=== PATIENT | male | born 1985 | race Caucasian/White ===

== ENCOUNTER 2018-04-15 13:18 | Emergency (ER) | payer OTHER, BC ==
[2018-04-15] MEDS: MINERAL OIL 473 ML BTL TOP ×2 (14:34→16:15)
[2018-04-15] MEDS: PERCOCET 5MG/325MG TAB PO (14:35)
[2018-04-15] MEDS ORDERED: POLYSPORIN TOPICAL OINTMENT 15GM As Ordered (17:09)
== END 2018-04-15 17:51 | disposition home or self-care (01) ==
LOC: M ED 13:18
DX: T23.252A Burn of second degree of left palm, initial encounter (principal); T23.251A Burn of second degree of right palm, initial encounter; X19.XXXA Contact with other heat and hot substances, initial encounter; Y92.89 Other specified places as the place of occurrence of the external cause; Y99.0 Civilian activity done for income or pay; Z79.899 Other long term (current) drug therapy
CPT/HCPCS: 16020

== ENCOUNTER → 2018-09-26 | Outpatient (REF) | payer BC ==
[~2018-09-26] MED LIST: ALBU17IN2 INH; LIPI10TA PO; PERC5TAB12 PO
== END ==
LOC: M SFHCLERA 12:00
PROVIDERS: ATTEND Nurse Practitioner Family
DX: J02.9 Acute pharyngitis, unspecified (principal)

== ENCOUNTER → 2019-01-07 | Outpatient (CLI) | payer BC ==
[2019-01-07 13:17] LABS: BASO % 0.5 % (0.0-1.0); EOS # 0.1 10^3/uL (0.0-0.50); EOS % 1.5 % (0.0-3.0); HEMATOCRIT 50.2 % (42.0-52.0); HEMOGLOBIN 17.4 g/dl (13.5-17.5); LYMPH # 1.2 10^3/uL (1.5-4.5); MEAN CORPUSCULAR HEMOGLOBIN 31.3 pg (27.0-33.0); MEAN CORPUSCULAR HGB CONC 34.7 g/dl (32.0-36.5); MEAN CORPUSCULAR VOLUME 90.3 fl (80.0-96.0); MONO # 0.3 10^3/uL (0.0-0.8); MONO % 8.2 % (0.0-5.0); NEUTROPHILS # 2.5 10^3/uL (1.8-7.7); NEUTROPHILS % 59.6 % (36.0-66.0); PLATELET COUNT, AUTOMATED 168 10^3/uL (150-450); RED BLOOD COUNT 5.56 10^6/uL (4.30-6.10); WHITE BLOOD COUNT 4.1 10^3/uL (4.0-10.0)
[2019-01-07 13:26] LABS: HEMOGLOBIN A1c 5.2 %
[2019-01-07 13:32] LABS: ALBUMIN 4.2 GM/DL (3.2-5.2); ALT/SGPT 31 U/L (12-78); BILIRUBIN,TOTAL 0.9 MG/DL (0.2-1.0); BLOOD UREA NITROGEN 31 MG/DL (7-18); CALCIUM LEVEL 8.6 MG/DL (8.5-10.1); CARBON DIOXIDE LEVEL 28 MEQ/L (21-32); CHLORIDE LEVEL 105 MEQ/L (98-107); CHOLESTEROL LEVEL 174 MG/DL (<200); CREATININE FOR GFR 1.22 MG/DL (0.70-1.30); GLOMERULAR FILTRATION RATE > 60.0 (>60); GLUCOSE, FASTING 84 MG/DL (70-100); HDL CHOLESTEROL 50 MG/DL (>40); LDL CHOLESTEROL 103 MG/DL (<100); NON-HDL-C 124 MG/DL; POTASSIUM SERUM 4.7 MEQ/L (3.5-5.1); SODIUM LEVEL 140 MEQ/L (136-145); TOTAL PROTEIN 7.3 GM/DL (6.4-8.2); TRIGLYCERIDES LEVEL 105 MG/DL (<150)
[2019-01-09 12:04] LABS: TOTAL 25(OH) VITAMIN D 31.4 NG/ML (30.0-100.0)
== END ==
LOC: M WUC 08:56
PROVIDERS: ATTEND Nurse Practitioner Adult Health
DX: E78.00 Pure hypercholesterolemia, unspecified (principal); J45.909 Unspecified asthma, uncomplicated; Z79.899 Other long term (current) drug therapy

== ENCOUNTER 2019-07-25 18:15 | Inpatient (IN) | payer BC, OTHER ==
[~2019-07-25] VITALS: Ht 177.8 cm; Wt 110.7 kg
[~2019-07-25 18:15] MED LIST changes: -ALBU17IN2 INH; +PROV108A INH
[2019-07-25] MEDS ORDERED: TAMS1CAP17 (18:22)
[2019-07-25] MEDS ORDERED: ONDA4TAB6 (18:22)
[2019-07-25] MEDS ORDERED: HYDR-3713 (18:22)
[2019-07-25 19:10] LABS: BASO % 0.2 % (0.0-1.0); EOS % 0.1 % (0.0-3.0); HEMATOCRIT 46.1 % (42.0-52.0); HEMOGLOBIN 16.6 g/dl (13.5-17.5); LYMPH # 1.2 10^3/uL (1.5-5.0); LYMPH % 8.2 % (24.0-44.0); MEAN CORPUSCULAR HEMOGLOBIN 29.9 pg (27.0-33.0); MEAN CORPUSCULAR VOLUME 82.9 fl (80.0-96.0); MONO # 1.9 10^3/uL (0.0-0.8); MONO % 13.1 % (0.0-5.0); NEUTROPHILS # 11.5 10^3/uL (1.5-8.5); NEUTROPHILS % 77.7 % (36.0-66.0); PLATELET COUNT, AUTOMATED 164 10^3/uL (150-450); RED BLOOD COUNT 5.56 10^6/uL (4.30-6.10); WHITE BLOOD COUNT 14.8 10^3/uL (4.0-10.0)
[2019-07-25 19:26] LABS: ALBUMIN 4.1 GM/DL (3.2-5.2); ALT/SGPT 20 U/L (12-78); BILIRUBIN,DIRECT 0.6 MG/DL (0.0-0.2); BILIRUBIN,TOTAL 2.3 MG/DL (0.2-1.0); BLOOD UREA NITROGEN 21 MG/DL (7-18); CARBON DIOXIDE LEVEL 25 MEQ/L (21-32); CHLORIDE LEVEL 98 MEQ/L (98-107); CREATININE FOR GFR 2.18 MG/DL (0.70-1.30); GLOMERULAR FILTRATION RATE 37.5 (>60); GLUCOSE, FASTING 98 MG/DL (70-100); LIPASE 56 U/L (73-393); POTASSIUM SERUM 3.8 MEQ/L (3.5-5.1); SODIUM LEVEL 132 MEQ/L (136-145); TOTAL PROTEIN 7.1 GM/DL (6.4-8.2)
[2019-07-25] MEDS ORDERED: ONDANSETRON 4MG/2ML VIAL (J2405) IV ONE (20:45)
[2019-07-25] MEDS: HEPARIN SOD (PORCINE) 5000 UNITS/ML VIAL SC SCH (21:00)
[2019-07-25] MEDS ORDERED: MORPHINE 4 MG/ML 1ML VIAL/SYRINGE (J2270) IV ONE ×2 (21:00→22:15)
[2019-07-25] MEDS ORDERED: NS 1,000 ML IV ONE (21:00)
--- NOTE | 2019-07-25 21:36 | REPVR ---
PROCEDURE INFORMATION: Exam: CT Abdomen and Pelvis Without Contrast Exam date and time: 07/25/19 (8:55pm) Age: 34 years old Clinical indication: Left flank pain. History of stones. TECHNIQUE: Imaging protocol: Computed tomography of the abdomen and pelvis without contrast. Radiation optimization: All CT scans at this facility use at least one of these dose optimization techniques: automated exposure control; mA and/or kV adjustment per patient size (includes targeted exams where dose is matched to clinical indication); or iterative reconstruction. COMPARISON: No relevant prior studies available. FINDINGS: Liver: Normal. No solid mass. Gallbladder and bile ducts: Normal. No calcified stones. No ductal dilatation. Pancreas: Normal. No ductal dilatation. Spleen: Prominent spleen. Normal. No splenomegaly. Adrenals: Normal. No mass. Kidneys and ureters: Moderate left hydroureteronephrosis. Left perinephric and left periureteral fat stranding. Left kidney appears edematous and inflamed. Obstructing stone (3 x 4 mm size) in the distal left ureter (axial image #119) (located 3-4 cm above the left UV junction). Stomach and bowel: Unremarkable. No bowel obstruction. No mucosal thickening. Appendix: No evidence of appendicitis. Intraperitoneal space: Unremarkable. No free air. No significant fluid collection. Vasculature: Unremarkable. No abdominal aortic aneurysm. Lymph nodes: Unremarkable. No enlarged lymph nodes. Bladder: Unremarkable as visualized. Reproductive: Unremarkable as visualized. Bones/joints: Unremarkable. No acute fracture. Soft tissues: Unremarkable. IMPRESSION: Moderate left hydroureteronephrosis. Left perinephric and left periureteral fat stranding. Obstructing stone (3 x 4 mm size) in the distal left ureter (located 3-4 cm above the left UV junction). Electronically signed by: Kelin Call On 07/25/2019 21:35:46 PM
[2019-07-25 21:40] LABS: CK-MB VALUE MASS < 1.0 NG/ML (<3.6); CPK CREATINE PHOSPHOKINASE 115 U/L (39-308); MB/CK RELATIVE INDEX 0.87 (< OR =4); TROPONIN I < 0.02 NG/ML (< 0.10)
[2019-07-25] MEDS ORDERED: cefTRIAXone SOD 1 GM in D5W MINI-BAG PLUS 50 ML IV ONE (22:15)
[2019-07-25] MEDS ORDERED: ONDA4TAB6 PO (23:08)
[2019-07-25] MEDS ORDERED: PROAAER10 INH (23:08)
[2019-07-25] MEDS ORDERED: FLOM0.4C39 PO (23:08)
[2019-07-25] MEDS ORDERED: NORC1TAB7 PO (23:08)
[2019-07-25] MEDS ORDERED: ATOR40TA75 PO (23:08)
[2019-07-25] MEDS ORDERED: ONDANSETRON 4 MG ORAL DISINTEGRATING TAB (Q0162 PER 1MG) PO PRN (23:30)
[2019-07-25] MEDS ORDERED: ACETAMINOPHEN TAB 650MG DOSE (2X325MG) PO PRN (23:30)
[2019-07-25] MEDS ORDERED: cefTRIAXone SOD 1 GM VIAL (J0696) IM SCH (23:30)
[2019-07-25] MEDS: NS 1,000 ML IV SCH (23:45)
[2019-07-25] MEDS: ATORVASTATIN 20 MG TAB PO SCH (23:50)
[2019-07-26] VITALS (7 sets, daily range): BP systolic 132–144; BP diastolic 68–90
[2019-07-26 00:30] LABS: CK-MB VALUE MASS < 1.0 NG/ML (<3.6); CPK CREATINE PHOSPHOKINASE 112 U/L (39-308); MB/CK RELATIVE INDEX 0.89 (< OR =4); TROPONIN I < 0.02 NG/ML (< 0.10)
[2019-07-26] MEDS: NORCO, ANEXSIA 5/325MG TABLET (HYDROcodone/ACETAMINOPHEN) PO PRN ×3 (01:03→12:46)
--- NOTE | 2019-07-26 02:16 | REP ---
Clinical: Lower chest and abdominal pain . Comparison: 04/06/2007 . Technique: PA and lateral. Findings: The mediastinum and cardiac silhouette are normal. The lung sanchez are clear and without acute consolidation, effusion, or pneumothorax. The skeletal structures are intact and normal. Impression: 1. No acute cardiopulmonary process. Electronically Signed by Henri Sharp MD 07/26/2019 02:07 A
[2019-07-26] MEDS: MORPHINE 4 MG/ML 1ML VIAL/SYRINGE (J2270) IV PRN ×2 (05:24→15:13)
--- NOTE | 2019-07-26 05:45 | HPEPDOC ---
General Date of Admission Jul 25, 2019 at 23:18 Date of Service: Jul 25, 2019 Attending Physician: VERITO PORTER MD Chief Complaint The patient is a 34-year-old male admitted with a reason for visit of Froylan; Hydroureteronephrosis;Left Ureteral Calculus. Source: Patient Exam Limitations: No limitations Timing/Duration: Day(s) Severity: Severe Associated Symptoms: Fever, Loss of appetite, Vomiting, Other (L flank and L LQ abdominal pain) History of Present Illness 34 yo man with a history of kidney stones that passed spontaneously, hypertension not on any medications, hyperlipidemia, chronic back pain, mild asthma who presented to [facility] twice in the last 3 days with L flank pain and was found to have a kidney stone and discharged home on Vest and to follow up with PCP. However on his second presentation yesterday, he also now had N/V/fever and [facility] referred him to [facility] for evaluation as they do not have urology. In the ED, vitals were 134/91, T 96.9, HR 100, RR 22 while saturating 98% on room air. He was visibly uncomfortable and writhing in pain. He was given morphine 4mg x 2 with some moderate relief. The ED consulted Dr. Awad who recommended admission to medicine with close monitoring of his urine with plan for OR tomorrow if the stone did not pass. In the meantime, his work up was notable for CT A/P that showed moderate left hdyrouteronephrosis, perinephric and periureteral fat stranding, as well as an obstructing 3x4mm stone in the distal ureter above the UVJ, WBC 14.8, Hgb 16.6, Hct 46.1, platelets 164, Na 132, K 3.8 BUN 21, Cr 2.18 from recent 1.4 at [facility], Tbili of 2.3, Dbili 0.6, normal AST, ALT and Alk phos. He was given empiric ceftriaxone and admitted to medicine for pain control, empiric antibiotics, pending urology evaluation. Home Medications Scheduled Atorvastatin Calcium (Atorvastatin Calcium) 40 Mg Tablet, 40 MG PO QHS, (Reported) Tamsulosin HCl (Flomax) 0.4 Mg Capsule, 0.4 MG PO BID, (Reported) JUST INCREASED FROM ONCE DAILY TODAY Scheduled PRN Albuterol Sulfate (Proair Hfa) 8.5 Gm Hfa.aer.ad, 2 PUFF INH Q4H PRN for SHORTNESS OF BREATH, (Reported) Hydrocodone/Acetaminophen (Vest 5-325 Tablet) 1 Each Tablet, 1 TAB PO Q4H PRN for PAIN, (Reported) Ondansetron (Ondansetron Odt) 4 Mg Tab.rapdis, 4 MG PO Q6H PRN for NAUSEA, (Reported) Allergies Coded Allergies: No Known Allergies (Verified , 08/21/04) Past Medical History Medical History Kidney stones that passed spontaneously, hypertension not on any medications, hyperlipidemia, chronic back pain, mild asthma, morbidly obese Surgical History s/p appendectomy biopsy of cysts that were benign Family History Significant Family History: No pertinent family hx Social History * Smoker: Denies Alcohol: Denies Drugs: denies Recent Travel/Sick Contacts: Denies: Recent travel, Recent sick contacts Psychosocial History: No pertinent psych hx A-FIB/CHADSVASC A-FIB History Current/History of A-Fib/PAF?: No Current PO Anticoag Therapy: No Age/Risk Factor Scoring CHADSVASC: CHADSVASC Response (Comments) Value Age Risk Factor Age < 65 years old 0 Gender Risk Factor Male 0 Hx of CHF No 0 Hx of HTN Yes 1 Hx of Stroke/TIA/or VTE No 0 Hx of Diabetes No 0 Hx of Vascular Disease No 0 Total 1 Treatment Treatment ordered: NONE Reason Anticoagulant not given: Not indicated/[id number] Review of Systems Constitutional: Reports: Chills, Fever; Denies: Night Sweats Eyes: Denies: Pain, Vision change ENT: Denies: Head Aches, Ear Pain, Dysphagia Skin: Denies: Rash, Lesions, Breakdown Pulmonary: Denies: Dyspnea, Cough Cardiovascular: Denies: Chest Pain, Palpitations, Orthopnea, Paroxysmal Noc. Dyspnea, Lt Headedness Gastrointestinal: Reports: Abdominal Pain (LLQ pain in band like motion to L flank); Denies: Nausea, Vomiting, Diarrhea Genitourinary: Reports: Retention (feels like he has had reduced urine output per his baseline); Denies: Dysuria, Frequency, Incontinence, Hematuria (no nted becky hematuria) Hematologic: Denies: Bruising, Bleeding Excessively Endocrine: Denies: Polydipsia, Polyphagia, Polyuria, Heat Intolerance, Cold Intolerance, Other Endocrine Sx Musculoskeletal: Reports: Back Pain (L flank pain) Neurological: Denies: Weakness, Numbness, Change in speech, Confusion Psych: Reports: Mood Normal; Denies: Depression, Memory Issues Physical Examination General Exam: Positive: Alert, No Acute Distress Eye Exam: Positive: PERRLA, Conjunctiva & lids normal, EOMI; Negative: Sclera icteric ENT Exam: Positive: Atraumatic, Mucous membr. moist/pink, Pharynx Normal Neck Exam: Positive: Supple; Negative: JVD, thyromegaly Chest Exam: Positive: Clear to auscultation, Normal air movement Heart Exam: Positive: Rate Normal, Regular Rhythm, Normal S1, Normal S2; Negative: Murmurs, Rubs Telemetry: Positive: No significant arrhythmia Abdomen Exam: Positive: Normal bowel sounds, Soft, Tenderness (LLQ pain and left suprapubic pain, also exquisite L flank pain); Negative: Hepatospenomegaly Extremity Exam: Positive: Normal pulses; Negative: Clubbing, Cyanosis, Edema Skin Exam: Positive: Nl turgor and temperature; Negative: Breakdown, Lesion Neuro Exam: Positive: Normal Gait, Normal Speech, Cranial Nerves 3-12 NL, Reflexes 2+ Psych Exam: Positive: Mental status NL, Mood NL, Oriented x 3 Vital Signs Vital Signs Date Time Temp Pulse Resp B/P (MAP) Pulse Ox O2 Delivery O2 Flow Rate FiO2 07/26/19 01:43 18 07/26/19 00:36 99.0 102 154/64 (94) 96 Room Air Laboratory Data Labs 24H Laboratory Tests 2 07/25/19 18:27: Immature Granulocyte % (Auto) 0.7, Neutrophils (%) (Auto) 77.7H, Lymphocytes (%) (Auto) 8.2L, Monocytes (%) (Auto) 13.1H, Eosinophils (%) (Auto) 0.1, Basophils (%) (Auto) 0.2, Neutrophils # (Auto) 11.5H, Lymphocytes # (Auto) 1.2L, Monocytes # (Auto) 1.9H, Eosinophils # (Auto) 0.0, Basophils # (Auto) 0.0, Nucleated Red Blood Cells % (auto) 0.0, Anion Gap 9, Glomerular Filtration Rate 37.5L, Calcium Level 9.0, Total Bilirubin 2.3H, Direct Bilirubin 0.6H, Aspartate Amino Transf (AST/SGOT) 11, Alanine Aminotransferase (ALT/SGPT) 20, Alkaline Phosphatase 85, Total Creatine Kinase 115, Creatine Kinase MB < 1.0, Creatine Kinase MB Relative Index 0.87, Troponin I < 0.02, Total Protein 7.1, Albumin 4.1, Albumin/Globulin Ratio 1.37, Lipase 56L 07/25/19 18:42: Urine Color YELLOW, Urine Appearance CLEAR, Urine pH 6.0, Urine Specific [place] 1.014, Urine Protein NEGATIVE, Urine Glucose (UA) NEGATIVE, Urine Ketones 1+H, Urine Blood 2+H, Urine Nitrite NEGATIVE, Urine Bilirubin NEGATIVE, Urine Urobilinogen 0.2, Urine Leukocyte Esterase NEGATIVE, Urine WBC (Auto) 1, Urine RBC (Auto) 3, Urine Hyaline Casts (Auto) 0, Urine Bacteria (Auto) NEGATIVE, Urine Squamous Epithelial Cells 0, Urine Sperm (Auto) 07/25/19 23:48: Total Creatine Kinase 112, Creatine Kinase MB < 1.0, Creatine Kinase MB Relative Index 0.89, Troponin I < 0.02 CBC/BMP Laboratory Tests 07/25/19 18:27 Assessment/Plan 34 yo man with a history of remote kidney stones that passed spontaneously, hypertension not on any medications, hyperlipidemia, chronic back pain, mild asthma who presented to [facility] twice in the last 3 days with L flank pain and was found to have a kidney stone now sent to [facility] after developing fever/N/V/D with L hydro, being admitted for an obstructive left ureteral stone with hydronephrosis as well as concern for pyelonephritis 2/2 the stone. Probable pyelonephritis: With leukocytosis, perinephric and periureteral fat stranding, edema and inflammation in the setting of a known obstructive stone -continue empiric ceftriaxone for now -consulted urology, Dr. Awad will evaluate the patient in the AM -bland UA with respect to WBC and bacteria Renal calculus with obstruction and L hydroureteronephrosis: -Urology consulted -Pain management with morphone 4Q4 IV PRN for severe pain, continue outpatient PRN norco for moderate pain -NPO at midnight per Dr. Awad, on 100cc/hr NS -Strain urine for stone passage, patient knows to collect all urine output -continue flomax -zofran IV PRN for N/V FROYLAN: Most likely prerenal given poor PO, N/V in the past 3 days. Keeping in mind the obstructive renal stone -monitor for now -urine lytes Hypertension: -has been normotensive thus far, will monitor Asthma: no evidence of exacerbation. Rare use of inhaler -Will monitor for now Constipation: -[place] BID DVT ppx: heparin Dispo: med surg, with urology consult Plan / VTE VTE Prophylaxis Ordered?: Yes VERITO PORTER MD Jul 26, 2019 05:45
--- NOTE | 2019-07-26 06:17 | ECGEPIP ---
[facility] - ED Test Date: 2019-07-25 Pat Name: CHRISTINE ROYAL Department: Room: - Gender: Male [employer]oll Gate Keeper: sherron : 1985 Requested By: TANIA Gill PA-C Order Number: [id number] Reading MD: Herman Simpson Measurements Intervals [place] Rate: 89 P: 46 [place]: 176 QRS: 9 QRSD: 108 T: 14 QT: 345 QTc: 420 Interpretive Statements SINUS RHYTHM NO PRIORS FOR COMPARISON Electronically Signed on 07-26-2019 6:16:56 EST by Herman Simpson
[2019-07-26] MEDS: HEPARIN SOD (PORCINE) 5000 UNITS/ML VIAL SC SCH ×2 (08:02→22:50)
[2019-07-26] MEDS: SENOKOT S TAB PO SCH ×2 (09:00→22:50)
[2019-07-26] MEDS ORDERED: INFLUENZA QUADRIVALENT PF VACCINE 0.5ML SYRINGE (90686) IM ONE (09:00)
--- NOTE | 2019-07-26 09:00 | SMCUROLCON ---
Urology Consultation General Date of Consultation 07/26/19 Reason For Consultation This patient is seen for Froylan; Hydroureteronephrosis;Left Ureteral Calculus. History of Present Illness This is a 34 y/o M w/ a PMH significant for asthma, who presented to the ER yesterday evening w/ worsening left flank pain and n/v. This has been becoming increasingly worse since Wednesday. He has been to [facility] twice for this as well and was given pain medications and antiemetics. On CT A/P done here, he was found to have a 6mm obstructing distal left ureteral stone w/ moderate left hydroureteronephrosis and perinephric stranding. He also had a 3-4mm nonobstructing stone in the left kidney. He notes that his pain is controlled at this time but only b/c of pain medication. He has no appetite. He felt like was running fevers at home, but denies fevers since coming to the hospital. He has never had kidney stones previously. He denies dysuria. Past Medical History Medical History asthma Medications Current Medications Current Medications Medications (Trade) Dose Ordered Sig/Jennifer Route PRN Reason Start Time Stop Time Status Last Admin Dose Admin Acetaminophen (Tylenol Tab) 650 mg Q4H PRN PO PAIN OR FEVER 07/25/19 23:30 Acetaminophen/ Hydrocodone Bitart (Tarpley, Anexsia 5/325) 1 tab Q4H PRN PO PAIN 07/25/19 23:30 07/26/19 05:34 Atorvastatin Calcium (Lipitor) 40 mg QHS PO 07/25/19 21:00 07/25/19 23:50 Ceftriaxone Sodium 1 gm/ Dextrose 50 ml @ 100 mls/hr Q24H IV 07/26/19 09:00 Ceftriaxone Sodium (Rocephin) 1 gm Q24H IM 07/25/19 23:30 07/25/19 23:52 DC Heparin Sodium (Porcine) (Heparin) 5,000 units Q12H SC 07/25/19 21:00 07/25/19 21:00 Home Med (Med Rec Complete!) ASDIRECTED XX 07/25/19 23:15 07/25/19 23:13 DC Morphine Sulfate (Morphine Sulfate Inj) 4 mg Q4H PRN IV SEVERE PAIN (PS 8-10) 07/25/19 23:30 07/26/19 05:24 Ondansetron HCl (Zofran Odt) 4 mg Q6H PRN PO NAUSEA 07/25/19 23:30 Senna/Docusate Sodium (Senokot S) 1 tab BID PO 07/26/19 09:00 Sodium Chloride 1,000 ml @ 100 mls/hr Q10H IV 07/25/19 23:22 07/25/19 23:45 Tamsulosin HCl (Flomax) 0.4 mg BID PO 07/26/19 09:00 Allergies Allergies: Coded Allergies: No Known Allergies (Verified , 08/21/04) Review of Systems General: Denies: Chills, Night Sweats, Fatigue, Malaise Eyes: Denies: Pain, Vision change, Conjunctivae inflammation, Eyelid inflammation, Redness, Other Pulmonary: Denies: Dyspnea, Cough, Pleuritic Chest Pain, Other Symptoms Cardiovascular: Denies Chest Pain, Denies Palpitations, Denies Orthopnea, Denies Paroxysmal Noc. Dyspnea, Denies Edema, Denies Lt Headedness, Denies Other Symptoms Gastrointestinal: Reports: Nausea, Vomiting, Abdominal Pain Genitourinary: Denies: Dysuria, Frequency, Incontinence, Hematuria, Retention, Other Symptoms Musculoskeletal: Reports: Back Pain (left flank pain) Neurological: Denies: Weakness, Numbness, Incoordination, Change in Speech, Confusion, Seizures, Other Symptoms Psych: Reports: Mood Normal Physical Examination General Exam: Alert, Cooperative, No Acute Distress Chest Exam: Clear to auscultation Heart Exam: Rate Normal, Regular Rhythm Skin Exam: Nl turgor and temperature Neuro Exam: Normal Speech Psych Exam: Mental status NL, Mood NL Vital Signs/I&O Vital Signs Date Time Temp Pulse Resp B/P (MAP) Pulse Ox O2 Delivery O2 Flow Rate FiO2 07/26/19 06:10 18 07/26/19 06:00 98.3 77 141/83 (102) 95 Room Air I&O- Last 24 Hours up to 6 AM 07/26/19 05:59 Intake Total 1000 ml Output Total 1100 ml Balance -100 ml Laboratory Data 24H Labs Laboratory Tests 2 07/25/19 18:27: Immature Granulocyte % (Auto) 0.7, Neutrophils (%) (Auto) 77.7H, Lymphocytes (%) (Auto) 8.2L, Monocytes (%) (Auto) 13.1H, Eosinophils (%) (Auto) 0.1, Basophils (%) (Auto) 0.2, Neutrophils # (Auto) 11.5H, Lymphocytes # (Auto) 1.2L, Monocytes # (Auto) 1.9H, Eosinophils # (Auto) 0.0, Basophils # (Auto) 0.0, Nucleated Red Blood Cells % (auto) 0.0, Anion Gap 9, Glomerular Filtration Rate 37.5L, Calcium Level 9.0, Total Bilirubin 2.3H, Direct Bilirubin 0.6H, Aspartate Amino Transf (AST/SGOT) 11, Alanine Aminotransferase (ALT/SGPT) 20, Alkaline Phosphatase 85, Total Creatine Kinase 115, Creatine Kinase MB < 1.0, Creatine Kinase MB Relative Index 0.87, Troponin I < 0.02, Total Protein 7.1, Albumin 4.1, Albumin/Globulin Ratio 1.37, Lipase 56L 07/25/19 18:42: Urine Color YELLOW, Urine Appearance CLEAR, Urine pH 6.0, Urine Specific [place] 1.014, Urine Protein NEGATIVE, Urine Glucose (UA) NEGATIVE, Urine Ketones 1+H, Urine Blood 2+H, Urine Nitrite NEGATIVE, Urine Bilirubin NEGATIVE, Urine Urobilinogen 0.2, Urine Leukocyte Esterase NEGATIVE, Urine WBC (Auto) 1, Urine RBC (Auto) 3, Urine Hyaline Casts (Auto) 0, Urine Bacteria (Auto) NEGATIVE, Urine Squamous Epithelial Cells 0, Urine Sperm (Auto) 07/25/19 23:48: Total Creatine Kinase 112, Creatine Kinase MB < 1.0, Creatine Kinase MB Relative Index 0.89, Troponin I < 0.02 CBC/BMP Laboratory Tests 07/25/19 18:27 Assessment This is a 34 y/o M w/ admitted w/ FROYLAN and intractable pain due to an obstructing 6mm distal left ureteral stone and persistent vomiting. I explained that there is a chance that he could pass this stone. Assuming he does not pass the stone, we will plan to take him to the OR later today for cystoscopy, left ureteroscopy with laser lithotripsy, and left ureteral stent placement. Plan - hydrate - pain control - flomax - strain all urine - NPO - plan OR later today if patient does not pass his stone JAY JAY WATSON MD Jul 26, 2019 09:00
[2019-07-26] MEDS: TAMSULOSIN 0.4 MG CAP PO SCH ×2 (09:19→22:49)
[2019-07-26] MEDS: cefTRIAXone SOD 1 GM in D5W MINI-BAG PLUS 50 ML IV SCH (09:20)
[2019-07-26] MEDS: NS 1,000 ML IV SCH ×2 (09:54→22:54)
--- NOTE | 2019-07-26 11:02 | IPNPDOC ---
Subjective Date Seen The patient was seen on 07/26/19. Subjective Chief Complaint/HPI Patient is still and complaining of pain at the left flank. Awaiting urology procedure this afternoon General: Denies: ROS Unobtainable, Chills, Night Sweats, Fatigue, Malaise, Normal Appetite, Other Symptoms Constitutional: Denies: Chills, Fever, Malaise, Night Sweats, Weakness, Fatigue, Weight Loss, Lethargy, Other Pulmonary: Denies: Dyspnea, Cough, Pleuritic Chest Pain, Other Symptoms Cardiovascular: Denies: Chest Pain, Palpitations, Orthopnea, Paroxysmal Noc. Dyspnea, Edema, Lt Headedness, Other Symptoms Gastrointestinal: Denies: Nausea, Vomiting, Abdominal Pain, Diarrhea, Constipation, Melena, Hematochezia, Other Symptoms Genitourinary: Reports: Other Symptoms Endocrine: Denies: Polydipsia, Polyphagia, Polyuria, Heat Intolerance, Cold Intolerance, Other Endocrine Sx Musculoskeletal: Denies: Neck Pain, Back Pain, Shoulder Pain, Arm Pain, Hand Pain, Leg Pain, Foot Pain, Joint Pain, Muscle Pain, Spasms, Other Symptoms Neurological: Denies: Weakness, Numbness, Incoordination, Change in speech, Confusion, Seizures, Other Symptoms Objective Physical Examination Eye Exam: Negative: Sclera icteric Neck Exam: Positive: Supple; Negative: JVD, thyromegaly Chest Exam: Positive: Clear to auscultation, Normal air movement Heart Exam: Positive: Rate Normal, Regular Rhythm, Normal S1, Normal S2; Negative: Murmurs, Rubs Telemetry: Positive: No significant arrhythmia Abdomen Exam: Positive: Normal bowel sounds, Soft, Tenderness (LLQ pain and left suprapubic pain, also exquisite L flank pain); Negative: Hepatospenomegaly Extremity Exam: Positive: Normal pulses; Negative: Clubbing, Cyanosis, Edema Skin Exam: Positive: Nl turgor and temperature; Negative: Breakdown, Lesion Neuro Exam: Positive: Normal Gait, Normal Speech, Cranial Nerves 3-12 NL, Reflexes 2+ Assessment /Plan Problems (1) BULL (acute kidney injury) Status: Acute Problem Text: Most likely prerenal given poor PO, N/V in the past 3 days. Continue IVF (2) Hydroureteronephrosis Status: Acute Problem Text: Most likely patient has pyelonephritis secondary to leukocytosis, perinephric fat stranding edema and inflammation at the setting of obstructing his stone Continue ceftriaxone as per orders Urine cultures ordered and pending (3) Left ureteral calculus Status: Acute Problem Text: Patient has a renal calculus causing obstruction and hydro ureter hydronephrosis on left side Urology consult appreciated. Patient is a scheduled for cystoscopy with removal of the stone today at 5 PM Will keep patient nothing by mouth, continue IV fluids normal saline at 100 mL per hour Continue Flomax and Zofran when necessary and morphine sulfate for pain Plan/VTE VTE Prophylaxis Ordered?: Yes VS, I&O, 24H, Fishbone Vital Signs/I&O Vital Signs Date Time Temp Pulse Resp B/P (MAP) Pulse Ox O2 Delivery O2 Flow Rate FiO2 07/26/19 06:10 18 07/26/19 06:00 98.3 77 141/83 (102) 95 Room Air I&O- Last 24 Hours up to 6 AM 07/26/19 05:59 Intake Total 1000 ml Output Total 1100 ml Balance -100 ml Laboratory Data 24H LABS Laboratory Tests 2 07/25/19 18:27: Immature Granulocyte % (Auto) 0.7, Neutrophils (%) (Auto) 77.7H, Lymphocytes (%) (Auto) 8.2L, Monocytes (%) (Auto) 13.1H, Eosinophils (%) (Auto) 0.1, Basophils (%) (Auto) 0.2, Neutrophils # (Auto) 11.5H, Lymphocytes # (Auto) 1.2L, Monocytes # (Auto) 1.9H, Eosinophils # (Auto) 0.0, Basophils # (Auto) 0.0, Nucleated Red Blood Cells % (auto) 0.0, Anion Gap 9, Glomerular Filtration Rate 37.5L, Calcium Level 9.0, Total Bilirubin 2.3H, Direct Bilirubin 0.6H, Aspartate Amino Transf (AST/SGOT) 11, Alanine Aminotransferase (ALT/SGPT) 20, Alkaline Phosphatase 85, Total Creatine Kinase 115, Creatine Kinase MB < 1.0, Creatine Kinase MB Relative Index 0.87, Troponin I < 0.02, Total Protein 7.1, Albumin 4.1, Albumin/Globulin Ratio 1.37, Lipase 56L 07/25/19 18:42: Urine Color YELLOW, Urine Appearance CLEAR, Urine pH 6.0, Urine Specific [place] 1.014, Urine Protein NEGATIVE, Urine Glucose (UA) NEGATIVE, Urine Ketones 1+H, Urine Blood 2+H, Urine Nitrite NEGATIVE, Urine Bilirubin NEGATIVE, Urine Urobilinogen 0.2, Urine Leukocyte Esterase NEGATIVE, Urine WBC (Auto) 1, Urine RBC (Auto) 3, Urine Hyaline Casts (Auto) 0, Urine Bacteria (Auto) NEGATIVE, Urine Squamous Epithelial Cells 0, Urine Sperm (Auto) 07/25/19 23:48: Total Creatine Kinase 112, Creatine Kinase MB < 1.0, Creatine Kinase MB Relative Index 0.89, Troponin I < 0.02 CBC/BMP Laboratory Tests 07/25/19 18:27 USMAN CHEW MD Jul 26, 2019 11:02
[2019-07-26 14:35] LABS: HEMATOCRIT 41.5 % (42.0-52.0); HEMOGLOBIN 14.4 g/dl (13.5-17.5); MEAN CORPUSCULAR HEMOGLOBIN 30.1 pg (27.0-33.0); MEAN CORPUSCULAR HGB CONC 34.7 g/dl (32.0-36.5); MEAN CORPUSCULAR VOLUME 86.6 fl (80.0-96.0); PLATELET COUNT, AUTOMATED 127 10^3/uL (150-450); RED BLOOD COUNT 4.79 10^6/uL (4.30-6.10); WHITE BLOOD COUNT 8.3 10^3/uL (4.0-10.0)
[2019-07-26 14:48] LABS: CALCIUM LEVEL 8.2 MG/DL (8.5-10.1); CREATININE FOR GFR 2.08 MG/DL (0.70-1.30); GLOMERULAR FILTRATION RATE 39.6 (>60)
[2019-07-26] MEDS ORDERED: CONRAY-60 60% 50ML VIAL (Q9961) As Ordered ONE (18:50)
[2019-07-26] MEDS ORDERED: propofoL 200 MG/20 ML VIAL As Ordered ONE (19:16)
[2019-07-26] MEDS ORDERED: fentaNYL 250 MCG/5 ML INJECTION (J3010) As Ordered ONE (19:16)
[2019-07-26] MEDS ORDERED: LIDOCAINE 2% INJ 100 MG/5 ML SDV (FOR ANES.) As Ordered ONE (19:16)
[2019-07-26] MEDS ORDERED: MIDAZOLAM INJ 2 MG/2 ML VIAL (J2250) As Ordered ONE (19:17)
[2019-07-26] MEDS ORDERED: KETOROLAC 60 MG/2 ML VIAL (J1885) As Ordered ONE (19:49)
[2019-07-26] MEDS ORDERED: METOCLOPRAMIDE INJ 10MG/2ML VIAL (J2765) As Ordered ONE (19:49)
[2019-07-26] MEDS ORDERED: ONDANSETRON 4MG/2ML VIAL (J2405) As Ordered ONE (19:49)
[2019-07-26] MEDS ORDERED: dexameTHASONE 4 MG/ML 1ML VIAL (J1100) As Ordered ONE (19:49)
[2019-07-26] MEDS ORDERED: fentaNYL 100 MCG/2 ML INJECTION (J3010) As Ordered ONE (20:24)
[2019-07-26] MEDS ORDERED: METOCLOPRAMIDE INJ 10MG/2ML VIAL (J2765) IV PRN (21:10)
[2019-07-26] MEDS ORDERED: ONDANSETRON 4MG/2ML VIAL (J2405) IV PRN (21:10)
[2019-07-26] MEDS ORDERED: PERCOCET 5MG/325MG TAB As Ordered ONE (21:10)
[2019-07-26] MEDS ORDERED: fentaNYL 100 MCG/2 ML INJECTION (J3010) IV PRN (21:10)
[2019-07-26] MEDS ORDERED: LR 1,000 ML IV SCH (21:10)
[2019-07-26] MEDS ORDERED: MEPERIDINE INJ 25 MG/ML VIAL (J2175) IV PRN (21:10)
[2019-07-26] MEDS ORDERED: PERCOCET 5MG/325MG TAB PO PRN (21:10)
[2019-07-26] MEDS: ATORVASTATIN 20 MG TAB PO SCH (22:49)
[2019-07-27 01:00] VITALS: BP 131/66
[2019-07-27 02:00] VITALS: BP 133/67
[2019-07-27 06:00] VITALS: BP 146/80
[2019-07-27 07:04] LABS: HEMATOCRIT 38.4 % (42.0-52.0); HEMOGLOBIN 13.3 g/dl (13.5-17.5); MEAN CORPUSCULAR HEMOGLOBIN 30.6 pg (27.0-33.0); MEAN CORPUSCULAR HGB CONC 34.6 g/dl (32.0-36.5); MEAN CORPUSCULAR VOLUME 88.3 fl (80.0-96.0); PLATELET COUNT, AUTOMATED 141 10^3/uL (150-450); RED BLOOD COUNT 4.35 10^6/uL (4.30-6.10); WHITE BLOOD COUNT 5.7 10^3/uL (4.0-10.0)
[2019-07-27 07:29] LABS: BLOOD UREA NITROGEN 20 MG/DL (7-18); CALCIUM LEVEL 8.3 MG/DL (8.5-10.1); CARBON DIOXIDE LEVEL 27 MEQ/L (21-32); CHLORIDE LEVEL 107 MEQ/L (98-107); CREATININE FOR GFR 1.26 MG/DL (0.70-1.30); GLOMERULAR FILTRATION RATE > 60.0 (>60); GLUCOSE, FASTING 129 MG/DL (70-100); POTASSIUM SERUM 4.4 MEQ/L (3.5-5.1); SODIUM LEVEL 139 MEQ/L (136-145)
--- NOTE | 2019-07-27 07:31 | REP ---
Retrograde pyelogram intraoperative views: A series of three intraoperative fluoroscopic views are performed during left ureteral stent placement: The final film demonstrates the proximal and distal stent pigtails are in satisfactory locations. Fluoroscopic exposure time is 21 seconds. The fluoroscopic images of last image hold technology, reducing radiation exposure Electronically Signed by Pedro Saunders MD 07/27/2019 07:22 A
--- NOTE | 2019-07-27 07:41 | IPNPDOC ---
Subjective Review oF Systems Chief Complaint The patient is a 34-year-old male admitted with a reason for visit of Froylan; Hydroureteronephrosis;Left Ureteral Calculus. Events since Last Encounter No acute events o/n. The patient notes his pain is gone. No n/v. No f/c/ns. Objective Physical Examination General Exam: Alert, Cooperative, No Acute Distress Heart Exam: Positive: Rate Normal, Regular Rhythm, Normal S1, Normal S2 ABDOMEN EXAM: Soft; No: Tenderness Skin Exam: Nl turgor and temperature Neuro Exam: Normal Speech Psych Exam: Mental status NL, Mood NL Other physical findings no CVAT Vital Signs/I&O Vital Signs Date Time Temp Pulse Resp B/P (MAP) Pulse Ox O2 Delivery O2 Flow Rate FiO2 07/27/19 02:00 97.0 69 17 133/67 (89) 92 Room Air 07/26/19 20:48 2 I&O- Last 24 Hours up to 6 AM 07/27/19 06:00 Intake Total 3045 ml Output Total 1725 ml Balance 1320 ml Laboratory Data Labs 24H Laboratory Tests 2 07/26/19 14:15: Nucleated Red Blood Cells % (auto) 0.0, Anion Gap 6L, Glomerular Filtration Rate 39.6L, Calcium Level 8.2L 07/27/19 06:40: Nucleated Red Blood Cells % (auto) 0.0, Anion Gap 5L, Glomerular Filtration Rate > 60.0, Calcium Level 8.3L CBC/BMP Laboratory Tests 07/26/19 14:15 07/27/19 06:40 Assessment/Plan Date Seen The patient was seen on 07/27/19. Patient Summary This is a 34 y/o M POD1 s/p cysto, left ureteroscopy, left ureteral stent placement. I was not able to remove his stone yesterday as the ureter was too narrow to allow the scope to advance up to the level of the stone. I therefore placed a stent w/ the intent to leave it in for a few weeks, which will result in the ureter passively dilating. We will bring him back at that point to remove his stone. His pain is gone today. His serum Cr has trended down to normal. Plan/VTE VTE Prophylaxis Ordered?: Yes VTE Exclusion Mechanical Proph: N/A:VTE Prophy Ordered Plan - ok for discharge home from urologic standpoint - he has no activity restrictions - flomax can be stopped as he is unlikely to pass the stone - my office will contact the patient to arrange his f/u w/ us JAY JAY WATSON MD Jul 27, 2019 07:41
--- NOTE | 2019-07-27 08:09 | RO ---
DATE OF PROCEDURE: 07/26/2019 PREPROCEDURE DIAGNOSIS: Left kidney and ureteral stones. POSTPROCEDURE DIAGNOSIS: Left kidney and ureteral stones. PROCEDURE: Cystoscopy, left ureteroscopy, left retrograde pyelogram with intraoperative interpretation of images, left ureteral stent placement. SURGEON: Leonid Awad MD GEOTHERMAL HEAT PUMP MACHINIST: None. ANESTHESIA: General. OPERATIVE INDICATIONS: This is a 34-year-old male who was found to have obstructing 6-7 mm distal left ureteral stone as well as a smaller stone in the kidney. He was brought to the operating room today for treatment. DESCRIPTION OF PROCEDURE: The patient was brought to the operating room and general anesthesia was induced. Prophylactic antibiotics had already been infused. He was then placed in the dorsal lithotomy position, and then prepped and draped in the usual sterile fashion. At this point, a rigid cystoscope was inserted into the urethral meatus and advanced into the bladder. A Guidewire was advanced up the left collecting system. I then went through the left collecting system with a short rigid ureteroscope, and of note, in the distal ureter it was very narrow. I spent a moderate amount of time trying to navigate the distal ureter to get to the stone and ultimately I could not get the ureteroscope up through the distal ureter as it was too narrow. I then tried to advance a ureteral access sheath up the left collecting system and then tried to go up with flexible ureteroscope and was met with the same problem. The distal ureter was to narrow to get the scope up to the level of the stone. At this point, a retrograde pyelogram was performed and was notable for moderate left hydroureteronephrosis with no extravasation. I then withdrew the ureteroscope and at this point a decision was made just to place a stent. I then utilized the Guidewire to advance a 7 Swedish by 22-32 cm JJ ureteral stent up into the left collecting system. The wire was removed and there were adequate curls of the stent in the left renal pelvis and in the bladder. The bladder was then emptied of all fluids and his marked conclusion of the procedure. The patient was taken out of the dorsal lithotomy position, awakened from anesthesia and sent to the recovery room in stable condition. ESTIMATED BLOOD LOSS: 10 mL. COMPLICATIONS: None. SPECIMENS: None. PLAN: I will leave the patient's stent in for a few weeks to allow the ureter to passively dilate. I will then have to bring him back to the operating room for ureteroscopy to remove the stones. DERICK
[2019-07-27] MEDS ORDERED: INFLUENZA QUADRIVALENT PF VACCINE 0.5ML SYRINGE (90686) IM ONE (09:00)
[2019-07-27 10:00] VITALS: BP 139/83
[2019-07-27] MEDS: HEPARIN SOD (PORCINE) 5000 UNITS/ML VIAL SC SCH (10:17)
[2019-07-27] MEDS: cefTRIAXone SOD 1 GM in D5W MINI-BAG PLUS 50 ML IV SCH (10:18)
[2019-07-27] MEDS: SENOKOT S TAB PO SCH (10:18)
[2019-07-27] MEDS: NS 1,000 ML IV SCH ×2 (10:18→11:07)
[2019-07-27] MEDS ORDERED: CEFP200T PO (10:41)
--- NOTE | 2019-07-27 15:31 | DS.PDOC ---
Discharge Summary General Date of Admission Jul 25, 2019 at 23:18 Date of Discharge 07/27/18 Discharge Summary PROCEDURES PERFORMED DURING STAY: Cystoscopy. ADMITTING DIAGNOSES: 1. FROYLAN, hydroureteronephrosis, left ureteral calculus. DISCHARGE DIAGNOSES: 1. FROYLAN, hydroureteronephrosis, left ureteral calculus. COMPLICATIONS/CHIEF COMPLAINT: Froylan; Hydroureteronephrosis;Left Ureteral Calculus. HISTORY OF PRESENT ILLNESS: 34 yo man with a history of kidney stones that passed spontaneously, hypertension not on any medications, hyperlipidemia, chronic back pain, mild asthma who presented to [facility] twice in the last 3 days with L flank pain and was found to have a kidney stone and discharged home on [place] and to follow up with PCP. However on his second presentation yesterday, he also now had N/V/fever and [facility] referred him to [facility] for evaluation as they do not have urology. In the ED, vitals were 134/91, T 96.9, HR 100, RR 22 while saturating 98% on room air. He was visibly uncomfortable and writhing in pain. He was given morphine 4mg x 2 with some moderate relief. The ED consulted Dr. Awad who recommended admission to medicine with close monitoring of his urine with plan for OR tomorrow if the stone did not pass. In the meantime, his work up was notable for CT A/P that showed moderate left hdyrouteronephrosis, perinephric and periureteral fat stranding, as well as an obstructing 3x4mm stone in the distal ureter above the UVJ, WBC 14.8, Hgb 16.6, Hct 46.1, platelets 164, Na 132, K 3.8 BUN 21, Cr 2.18 from recent 1.4 at [facility], Tbili of 2.3, Dbili 0.6, normal AST, ALT and Alk phos. He was given empiric ceftriaxone and admitted to medicine for pain control, empiric antibiotics, pending urology evaluation.. HOSPITAL COURSE: . Patient was admitted with a obstructing stone. He was admitted to medical floor. IV fluids were started and pain management also was initiated. Patient did have some elevated WBC count and possible mild achy secondary to ureter obstruction. Patient was taken to the OR by Dr. Awad since the area of the stone was serially inflamed extraction was not done, but ureteral stent was placed in. Patient's symptom has somewhat resolved and he will be discharged home and follow with Dr. Awad as an outpatient for lithotripsy. Patient will be discharged home on oral cephalosporins and Toradol when necessary. Patient has been advised to continue increase oral hydration as needed and return to ER if symptoms recur, acute versus. DISCHARGE MEDICATIONS: Please see below. ALLERGIES: Please see below. PHYSICAL EXAMINATION ON DISCHARGE: VITAL SIGNS: Please see below. GENERAL: Within normal limits HEENT: GABBY,EOMI NECK: Supple CARDIOVASCULAR EXAMINATION: S1, S2, regular RESPIRATORY EXAMINATION: Clear to A&P ABDOMINAL EXAMINATION: Benign EXTREMITIES: No clubbing, cyanosis, edema SKIN: Normal NEUROLOGICAL EXAMINATION: . No focal motor sensory deficit PSYCHIATRIC EXAMINATION: Normal LABORATORY DATA: Please see below. IMAGING: Retrograde pyelogram: Retrograde pyelogram intraoperative views: A series of three intraoperative fluoroscopic views are performed during left ureteral stent placement: The final film demonstrates the proximal and distal stent pigtails are in satisfactory locations. Fluoroscopic exposure time is 21 seconds. The fluoroscopic images of last image hold technology, reducing radiation exposure PROGNOSIS: Good ACTIVITY: As tolerated. DIET: As tolerated DISCHARGE PLAN: Follow up with urology as an outpatient DISPOSITION: 01 Home, Self-Care. DISCHARGE INSTRUCTIONS: 1. As per discharge instructions. ITEMS TO FOLLOWUP ON ON OUTPATIENT: 1. Follow with urology as an outpatient. DISCHARGE CONDITION: Stable. TIME SPENT ON DISCHARGE: 28 minutes. Vital Signs/I&Os Vital Signs Date Time Temp Pulse Resp B/P (MAP) Pulse Ox O2 Delivery O2 Flow Rate FiO2 07/27/19 10:00 97.4 71 19 139/83 (101) 97 Room Air 07/26/19 20:48 2 I&O- Last 24 Hours up to 6 AM 07/27/19 06:00 Intake Total 3345 ml Output Total 2100 ml Balance 1245 ml Laboratory Data Labs 24H Laboratory Tests 2 07/27/19 06:40: Nucleated Red Blood Cells % (auto) 0.0, Anion Gap 5L, Glomerular Filtration Rate > 60.0, Calcium Level 8.3L CBC/BMP Laboratory Tests 07/27/19 06:40 Discharge Medications Scheduled Atorvastatin Calcium (Atorvastatin Calcium) 40 Mg Tablet, 40 MG PO QHS, (Reported) Cefpodoxime Proxetil (Cefpodoxime Proxetil) 200 Mg Tablet, 200 MG PO BID Tamsulosin HCl (Flomax) 0.4 Mg Capsule, 0.4 MG PO BID, (Reported) JUST INCREASED FROM ONCE DAILY TODAY Scheduled PRN Albuterol Sulfate (Proair Hfa) 8.5 Gm Hfa.aer.ad, 2 PUFF INH Q4H PRN for SHORTNESS OF BREATH, (Reported) Hydrocodone/Acetaminophen ([place] 5-325 Tablet) 1 Each Tablet, 1 TAB PO Q4H PRN for PAIN, (Reported) Ondansetron (Ondansetron Odt) 4 Mg Tab.rapdis, 4 MG PO Q6H PRN for NAUSEA, (Reported) Allergies Coded Allergies: No Known Allergies (Verified , 08/21/04) USMAN CHEW MD Jul 27, 2019 15:31
== END 2019-07-27 11:45 | disposition home or self-care (01) | DRG 660 ==
LOC: M ED 18:15 → M ED INP 23:18 → ENRESERV 07-26 00:07 → M MSPAV 07-26 00:35
PROVIDERS: ADMIT Internal Medicine; ATTEND Internal Medicine
PROC: 0T778ZZ Dilation of Left Ureter, Via Natural or Artificial Opening Endoscopic (ICD-10-PCS; principal; 2019-07-26 17:00)
DX: N20.1 Calculus of ureter (principal); N17.9 Acute kidney failure, unspecified; I10 Essential (primary) hypertension; E78.5 Hyperlipidemia, unspecified; G89.29 Other chronic pain; M54.9 Dorsalgia, unspecified; J45.909 Unspecified asthma, uncomplicated; Z79.899 Other long term (current) drug therapy; Z90.49 Acquired absence of other specified parts of digestive tract

== ENCOUNTER → 2019-08-18 | Outpatient (CLI) | payer OTHER ==
[~2019-08-18] MED LIST changes: +ATOR40TA75 PO; +CEFP200T PO; +FLOM0.4C39 PO; +HYDR-3713; +NORC1TAB7 PO; +ONDA4TAB6; +ONDA4TAB6 PO; +PROAAER10 INH; +TAMS1CAP17
[2019-08-18 11:30] LABS: HEMATOCRIT 48.1 % (42.0-52.0); HEMOGLOBIN 16.6 g/dl (13.5-17.5); MEAN CORPUSCULAR HEMOGLOBIN 29.8 pg (27.0-33.0); MEAN CORPUSCULAR HGB CONC 34.5 g/dl (32.0-36.5); MEAN CORPUSCULAR VOLUME 86.4 fl (80.0-96.0); PLATELET COUNT, AUTOMATED 179 10^3/uL (150-450); RED BLOOD COUNT 5.57 10^6/uL (4.30-6.10); WHITE BLOOD COUNT 6.2 10^3/uL (4.0-10.0)
[2019-08-18 11:40] LABS: APPEARANCE, URINE CLEAR (CLEAR); BACTERIA, URINE AUTO NEGATIVE (NEGATIVE); BILIRUBIN, URINE AUTO NEGATIVE (NEGATIVE); BLOOD, URINE BLOOD 2+ (NEGATIVE); COLOR, URINE COLORLESS (YELLOW); GLUCOSE, URINE (UA) AUTO NEGATIVE (NEGATIVE); KETONE, URINE AUTO NEGATIVE (NEGATIVE); LEUKOCYTE ESTERASE, URINE AUTO TRACE (NEGATIVE); NITRITE, URINE AUTO NEGATIVE (NEGATIVE); PROTEIN, URINE AUTO NEGATIVE (NEGATIVE); RBC, URINE AUTO 1 /HPF (0-3); SPECIFIC GRAVITY URINE AUTO 1.001 (1.002-1.035); SQUAMOUS EPITHELIAL CELL UR AU 0 /HPF (0-6); UROBILINOGEN, URINE AUTO 0.2 mg/dL (0.0-2.0); WBC, URINE AUTO 3 /HPF (0-3)
[2019-08-18 11:57] LABS: INR 1.11
[2019-08-18 11:58] LABS: PARTIAL THROMBOPLASTIN TIME 30.1 SECONDS (25.0-38.4)
[2019-08-18 12:00] LABS: BLOOD UREA NITROGEN 9 MG/DL (7-18); CALCIUM LEVEL 9.1 MG/DL (8.5-10.1); CARBON DIOXIDE LEVEL 34 MEQ/L (21-32); CHLORIDE LEVEL 104 MEQ/L (98-107); CREATININE FOR GFR 1.23 MG/DL (0.70-1.30); GLOMERULAR FILTRATION RATE > 60.0 (>60); GLUCOSE, FASTING 84 MG/DL (70-100); POTASSIUM SERUM 4.1 MEQ/L (3.5-5.1); SODIUM LEVEL 142 MEQ/L (136-145)
== END ==
LOC: M LAB 10:41
PROVIDERS: ATTEND Nurse Practitioner Women's Health
DX: Z01.818 Encounter for other preprocedural examination (principal); N13.2 Hydronephrosis with renal and ureteral calculous obstruction

== ENCOUNTER 2019-08-25 07:07 | Day surgery (SDC) | payer OTHER ==
[~2019-08-25] VITALS: Ht 177.8 cm; Wt 110.2 kg
[~2019-08-25 07:07] MED LIST changes: +LR 1,000 ML IV ONE; +ceFAZolin SOD 2 GM in IV 1 EA IV ONE
[2019-08-25] MEDS ORDERED: propofoL 200 MG/20 ML VIAL As Ordered ONE (08:11)
[2019-08-25] MEDS ORDERED: MIDAZOLAM INJ 2 MG/2 ML VIAL (J2250) As Ordered ONE (08:11)
[2019-08-25] MEDS ORDERED: LIDOCAINE 2% INJ 100 MG/5 ML SDV (FOR ANES.) As Ordered ONE (08:11)
[2019-08-25] MEDS ORDERED: fentaNYL 100 MCG/2 ML INJECTION (J3010) As Ordered ONE (08:11)
[2019-08-25] MEDS ORDERED: CONRAY-60 60% 50ML VIAL (Q9961) As Ordered ONE (09:00)
[2019-08-25] MEDS ORDERED: ONDANSETRON 4MG/2ML VIAL (J2405) As Ordered ONE (09:43)
[2019-08-25] MEDS ORDERED: METOCLOPRAMIDE INJ 10MG/2ML VIAL (J2765) As Ordered ONE (09:43)
--- NOTE | 2019-08-25 10:06 | REP ---
Retrograde pyelogram: Two views. History: Left-sided cyst O. Stone basket retrieval. 9 seconds of fluoroscopy time is reported. Findings: A sequence of two last image hold fluoroscopically obtained spot radiographs of the abdomen document left ureteral cannulation, and contrast enhancement. Electronically Signed by Moy De Dios MD 08/25/2019 09:58 A
[2019-08-25] MEDS ORDERED: fentaNYL 100 MCG/2 ML INJECTION (J3010) IV PRN (10:15)
[2019-08-25] MEDS ORDERED: PERCOCET 5MG/325MG TAB PO PRN ×2 (10:15)
[2019-08-25] MEDS ORDERED: KETOROLAC 30 MG/ML VIAL (J1885) IV PRN (10:15)
[2019-08-25] MEDS ORDERED: METOCLOPRAMIDE INJ 10MG/2ML VIAL (J2765) IV PRN (10:15)
[2019-08-25] MEDS ORDERED: LR 1,000 ML IV SCH (10:15)
[2019-08-25] MEDS ORDERED: ONDANSETRON 4MG/2ML VIAL (J2405) IV PRN (10:15)
[2019-08-25 11:14] VITALS: BP 167/106
--- NOTE | 2019-08-28 11:08 | RO ---
DATE OF PROCEDURE: 08/25/2019 PREPROCEDURE DIAGNOSIS: Left kidney and ureteral stones. POSTPROCEDURE DIAGNOSIS: Left kidney and ureteral stones. PROCEDURE: Cystoscopy, left ureteroscopy with basket extraction of stones, left retrograde pyelogram with intraoperative interpretation of images, left ureteral stent removal. SURGEON: Leonid Awad MD HOG ROOM SUPERVISOR: None. ANESTHESIA: General. OPERATIVE INDICATIONS: This is a 34-year-old male who was found to have an obstructing approximately 5 mm left ureteral stone as well as small kidney stones. He was brought to the operating room a few weeks ago for attempted removal of the stones, but due to the severe narrowing of the distal left ureter the scope could not be advanced to the level of the stone. We therefore left the stent in place with the intent for the ureter to passively dilate and plan for the patient to be brought back to the operating room today to go back and remove the stones. DESCRIPTION OF PROCEDURE: The patient was brought to the operating room and general anesthesia was induced. Prophylactic antibiotics were infused. He was placed in the dorsal lithotomy position and prepped and draped in the usual sterile fashion. A rigid cystoscope was inserted into the urethral meatus and advanced into the bladder. The previously placed left ureteral stent was grasped and withdrawn to the distal end protruding from the urethral meatus. A guidewire was advanced up the stent and then the stent was completely removed. I then went up the left collecting system with a short semi-rigid ureteroscope, and of note, the ureter was a lot more patent this time. I was easily able to get the scope into the ureter and within the distal ureter the 5 mm stone was seen. The stone was grasped with a basket and withdrawn. I then advanced the ureteral access sheath up the left collecting system. I went up the access sheath with a flexible ureteroscope and within the lower pole of calyx two small stones were seen. Both stones were grasped with a basket and removed. No additional stones were seen within the kidney. A retrograde pyelogram was then performed. It was notable for mild left hydronephrosis and no extravasation. I then withdrew the ureteroscope along with access sheath and no additional stones were seen within the ureter. The previously placed wire was removed as well. I then observed the left ureteral orifice with the cystoscope and effluxed urine easily. All the contrast appeared to clear out of the kidney. I therefore decided not to place a new ureteral stent. At this point, the bladder was emptied of all fluid and this marked conclusion of the procedure. The patient was taken out of dorsal lithotomy position, awakened from anesthesia and transported to recovery room in stable condition. Estimated blood loss: 5 mL. Complications: None. Specimens: Kidney stones. Plan: The patient will followup in the clinic in approximately 1 month for a postoperative visit. DERICK
== END 2019-08-25 11:40 | disposition home or self-care (01) ==
LOC: M SDC 07:07
PROVIDERS: ATTEND Urology
DX: N20.0 Calculus of kidney (principal); N20.1 Calculus of ureter; I10 Essential (primary) hypertension; E78.5 Hyperlipidemia, unspecified; N40.0 Benign prostatic hyperplasia without lower urinary tract symptoms; Z79.899 Other long term (current) drug therapy
CPT/HCPCS: 52352; 74420; 82365; 88300; C1769; C1894; J0690; J2250; J2405; J2765; J3010; Q9961

== ENCOUNTER → 2020-02-06 | Outpatient (CLI) | payer OTHER ==
[~2020-02-06] MED LIST changes: -LR 1,000 ML IV ONE; -ceFAZolin SOD 2 GM in IV 1 EA IV ONE
[2020-03-04 20:28] LABS: BASO % 0.5 % (0.0-1.0); EOS # 0.1 10^3/uL (0.0-0.5); EOS % 1.5 % (0.0-3.0); HEMATOCRIT 48.6 % (42.0-52.0); HEMOGLOBIN 16.8 g/dl (13.5-17.5); LYMPH # 1.3 10^3/uL (1.5-5.0); LYMPH % 20.9 % (24.0-44.0); MEAN CORPUSCULAR HEMOGLOBIN 30.3 pg (27.0-33.0); MEAN CORPUSCULAR HGB CONC 34.6 g/dl (32.0-36.5); MEAN CORPUSCULAR VOLUME 87.7 fl (80.0-96.0); MONO # 0.5 10^3/uL (0.0-0.8); NEUTROPHILS # 4.1 10^3/uL (1.5-8.5); NEUTROPHILS % 68.9 % (36.0-66.0); PLATELET COUNT, AUTOMATED 165 10^3/uL (150-450); RED BLOOD COUNT 5.54 10^6/uL (4.30-6.10)
[2020-04-06 11:24] LABS: ALBUMIN 4.3 GM/DL (3.2-5.2); ALT/SGPT 35 U/L (12-78); BILIRUBIN,TOTAL 0.8 MG/DL (0.2-1.0); BLOOD UREA NITROGEN 13 MG/DL (7-18); CARBON DIOXIDE LEVEL 31 MEQ/L (21-32); CHLORIDE LEVEL 105 MEQ/L (98-107); GLOMERULAR FILTRATION RATE > 60.0 (>60); GLUCOSE, FASTING 79 MG/DL (70-100); HEMOGLOBIN A1c 4.8 %; POTASSIUM SERUM 4.2 MEQ/L (3.5-5.1); SODIUM LEVEL 141 MEQ/L (136-145); TOTAL PROTEIN 7.4 GM/DL (6.4-8.2)
== END ==
LOC: M LAB 09:36
PROVIDERS: ATTEND Nurse Practitioner Adult Health
DX: E55.9 Vitamin D deficiency, unspecified (principal); E78.00 Pure hypercholesterolemia, unspecified; E78.5 Hyperlipidemia, unspecified; Z79.899 Other long term (current) drug therapy

== ENCOUNTER → 2021-07-10 | Outpatient (CLI) | payer OTHER ==
[2021-07-10 13:46] LABS: FOLATE 10.6 NG/ML
== END ==
LOC: M PLALAB 10:57
PROVIDERS: ATTEND Psychiatry & Neurology Neurology
DX: R20.2 Paresthesia of skin (principal); D51.9 Vitamin B12 deficiency anemia, unspecified

== ENCOUNTER → 2021-12-11 | Outpatient (CLI) | payer OTHER ==
[2021-12-11 09:06] LABS: BASO % 0.7 % (0.0-1.0); EOS # 0.1 10^3/uL (0.0-0.5); HEMATOCRIT 47.2 % (42.0-52.0); HEMOGLOBIN 16.5 g/dl (13.5-17.5); LYMPH # 1.6 10^3/uL (1.5-5.0); LYMPH % 26.8 % (24.0-44.0); MEAN CORPUSCULAR HEMOGLOBIN 29.9 pg (27.0-33.0); MEAN CORPUSCULAR VOLUME 85.5 fl (80.0-96.0); MONO # 0.5 10^3/uL (0.0-0.8); MONO % 8.1 % (2.0-8.0); NEUTROPHILS # 3.7 10^3/uL (1.5-8.5); NEUTROPHILS % 63.1 % (36.0-66.0); PLATELET COUNT, AUTOMATED 171 10^3/uL (150-450); RED BLOOD COUNT 5.52 10^6/uL (4.30-6.10); WHITE BLOOD COUNT 5.8 10^3/uL (4.0-10.0)
[2021-12-11 09:42] LABS: HEMOGLOBIN A1c 4.7 %
[2021-12-11 09:46] LABS: ALBUMIN 3.9 GM/DL (3.2-5.2); ALT/SGPT 36 U/L (12-78); BILIRUBIN,TOTAL 1.3 MG/DL (0.2-1.0); BLOOD UREA NITROGEN 15 MG/DL (7-18); CALCIUM LEVEL 9.5 MG/DL (8.5-10.1); CARBON DIOXIDE LEVEL 31 MEQ/L (21-32); CHLORIDE LEVEL 108 MEQ/L (98-107); CHOLESTEROL LEVEL 156 MG/DL (<200); CHOLESTEROL RISK RATIO 3.804 (<5); CREATININE FOR GFR 1.32 MG/DL (0.70-1.30); GLOMERULAR FILTRATION RATE > 60.0 (>60); GLUCOSE, FASTING 87 MG/DL (70-100); HDL CHOLESTEROL 41 MG/DL (>40); LDL CHOLESTEROL 95 MG/DL (<100); NON-HDL-C 115 MG/DL; POTASSIUM SERUM 4.2 MEQ/L (3.5-5.1); SODIUM LEVEL 142 MEQ/L (136-145); TOTAL 25(OH) VITAMIN D 46.5 NG/ML (30.0-100.0); TOTAL PROTEIN 6.8 GM/DL (6.4-8.2); TRIGLYCERIDES LEVEL 98 MG/DL (<150)
== END ==
LOC: M LAB 08:35
PROVIDERS: ATTEND Nurse Practitioner Family
DX: E78.5 Hyperlipidemia, unspecified (principal); E78.00 Pure hypercholesterolemia, unspecified; E55.9 Vitamin D deficiency, unspecified; Z79.899 Other long term (current) drug therapy

== ENCOUNTER → 2022-06-01 | Outpatient (CLI) | payer OTHER ==
[~2022-06-01] MED LIST changes: +ALBU6.7H6 INH; -PROV108A INH
[2022-06-01 10:52] LABS: BASO % 0.5 % (0.0-1.0); EOS # 0.1 10^3/uL (0.0-0.5); EOS % 0.8 % (0.0-3.0); HEMATOCRIT 48.7 % (42.0-52.0); HEMOGLOBIN 16.3 g/dl (13.5-17.5); LYMPH # 1.4 10^3/uL (1.5-5.0); LYMPH % 21.2 % (24.0-44.0); MEAN CORPUSCULAR HEMOGLOBIN 29.7 pg (27.0-33.0); MEAN CORPUSCULAR HGB CONC 33.5 g/dl (32.0-36.5); MEAN CORPUSCULAR VOLUME 88.7 fl (80.0-96.0); MONO # 0.5 10^3/uL (0.0-0.8); MONO % 7.3 % (2.0-8.0); NEUTROPHILS # 4.5 10^3/uL (1.5-8.5); NEUTROPHILS % 69.9 % (36.0-66.0); PLATELET COUNT, AUTOMATED 175 10^3/uL (150-450); RED BLOOD COUNT 5.49 10^6/uL (4.30-6.10); WHITE BLOOD COUNT 6.5 10^3/uL (4.0-10.0)
[2022-06-01 11:41] LABS: CARBON DIOXIDE LEVEL 30 MMOL/L (20-31); CHLORIDE LEVEL 103 MMOL/L (98-107); POTASSIUM SERUM 4.5 MMOL/L (3.5-5.1); SODIUM LEVEL 142 MMOL/L (136-145)
[2022-06-01 11:42] LABS: ALBUMIN 4.1 G/DL (3.2-5.2)
[2022-06-01 11:46] LABS: BLOOD UREA NITROGEN 16 MG/DL (9-23); TRIGLYCERIDES LEVEL 68 MG/DL (<150)
[2022-06-01 11:47] LABS: ALKALINE PHOSPHATASE 90 U/L (46-116); CALCIUM LEVEL 9.2 MG/DL (8.5-10.1); GLUCOSE, FASTING 82 MG/DL (60-100)
[2022-06-01 11:48] LABS: BILIRUBIN,TOTAL 0.7 MG/DL (0.3-1.2); HDL CHOLESTEROL 42.3 MG/DL (>40); TOTAL PROTEIN 6.9 G/DL (5.7-8.2)
[2022-06-01 11:49] LABS: ALT/SGPT 25 U/L (7.0-40); AST/SGOT 22 U/L (<34); CHOLESTEROL LEVEL 144 MG/DL (<200); CREATININE FOR GFR 1.14 MG/DL (0.70-1.30); GLOMERULAR FILTRATION RATE > 60.0 (>60); LDL CHOLESTEROL 88.1 MG/DL (<100); NON-HDL-C 102 MG/DL
[2022-06-01 11:50] LABS: THYROID STIMULATING HORMONE 2.278 uIU/ML (0.55-4.78)
[2022-06-01 11:51] LABS: TOTAL 25(OH) VITAMIN D 59.8 NG/ML (20.0-100.0)
[2022-06-01 14:00] LABS: HEMOGLOBIN A1c 4.6 % (4.0-6.0)
== END ==
LOC: M LAB 09:39
PROVIDERS: ATTEND Nurse Practitioner Family
DX: E07.9 Disorder of thyroid, unspecified (principal)

== ENCOUNTER → 2023-06-04 | Outpatient (CLI) | payer OTHER ==
[2023-06-04 09:12] LABS: BASO % 0.2 % (0.0-1.0); EOS # 0.1 10^3/uL (0.0-0.5); EOS % 1.9 % (0.0-3.0); HEMATOCRIT 41.3 % (42.0-52.0); HEMOGLOBIN 14.8 g/dl (13.5-17.5); LYMPH # 1.3 10^3/uL (1.5-5.0); LYMPH % 25.2 % (24.0-44.0); MEAN CORPUSCULAR HGB CONC 35.8 g/dl (32.0-36.5); MEAN CORPUSCULAR VOLUME 86.6 fl (80.0-96.0); MONO # 0.3 10^3/uL (0.0-0.8); MONO % 6.2 % (2.0-8.0); NEUTROPHILS # 3.4 10^3/uL (1.5-8.5); NEUTROPHILS % 66.1 % (36.0-66.0); PLATELET COUNT, AUTOMATED 171 10^3/uL (150-450); RED BLOOD COUNT 4.77 10^6/uL (4.30-6.10); WHITE BLOOD COUNT 5.2 10^3/uL (4.0-10.0)
[2023-06-04 09:46] LABS: TOTAL 25(OH) VITAMIN D 42.7 NG/ML (20.0-100.0)
[2023-06-04 09:54] LABS: ALBUMIN 3.5 G/DL (3.2-5.2); ALKALINE PHOSPHATASE 77 U/L (46-116); ALT/SGPT 58 U/L (7.0-40); AST/SGOT 35 U/L (<34); BILIRUBIN,TOTAL 0.9 MG/DL (0.3-1.2); BLOOD UREA NITROGEN 13 MG/DL (9-23); CALCIUM LEVEL 8.1 MG/DL (8.5-10.1); CARBON DIOXIDE LEVEL 31 MMOL/L (20-31); CHLORIDE LEVEL 104 MMOL/L (98-107); CHOLESTEROL LEVEL 137 MG/DL (<200); CREATININE FOR GFR 1.08 MG/DL (0.70-1.30); GLOMERULAR FILTRATION RATE > 60.0 (>60); GLUCOSE, FASTING 86 MG/DL (60-100); HDL CHOLESTEROL 30.4 MG/DL (>40); NON-HDL-C 106.6 MG/DL; POTASSIUM SERUM 4.3 MMOL/L (3.5-5.1); SODIUM LEVEL 141 MMOL/L (136-145); TOTAL PROTEIN 6.3 G/DL (5.7-8.2); TRIGLYCERIDES LEVEL 88 MG/DL (<150)
== END ==
LOC: M LAB 08:30
PROVIDERS: ATTEND Registered Nurse
DX: Z79.899 Other long term (current) drug therapy (principal); E78.1 Pure hyperglyceridemia; E55.9 Vitamin D deficiency, unspecified; E78.5 Hyperlipidemia, unspecified

== ENCOUNTER → 2023-12-23 | Outpatient (CLI) | payer OTHER ==
[~2023-12-23] MED LIST changes: +ONDA-282; +ONDA-282 PO; -ONDA4TAB6; -ONDA4TAB6 PO
[2023-12-23 11:32] LABS: BASO % 0.5 % (0.0-1.0); EOS # 0.1 10^3/uL (0.0-0.5); HEMATOCRIT 48.4 % (42.0-52.0); HEMOGLOBIN 17.4 g/dl (13.5-17.5); LYMPH # 1.5 10^3/uL (1.5-5.0); LYMPH % 24.1 % (24.0-44.0); MEAN CORPUSCULAR HEMOGLOBIN 30.6 pg (27.0-33.0); MEAN CORPUSCULAR VOLUME 85.2 fl (80.0-96.0); MONO # 0.5 10^3/uL (0.0-0.8); MONO % 8.1 % (2.0-8.0); NEUTROPHILS # 4.2 10^3/uL (1.5-8.5); NEUTROPHILS % 65.8 % (36.0-66.0); PLATELET COUNT, AUTOMATED 173 10^3/uL (150-450); RED BLOOD COUNT 5.68 10^6/uL (4.30-6.10); WHITE BLOOD COUNT 6.3 10^3/uL (4.0-10.0)
== END ==
LOC: M LAB 10:42
PROVIDERS: ATTEND Registered Nurse
DX: R51.9 Headache, unspecified (principal); R79.9 Abnormal finding of blood chemistry, unspecified

== ENCOUNTER → 2024-04-14 | Outpatient (CLI) | payer OTHER | LOC: M PLAIMG 08:10 | PROVIDERS: ATTEND Physician Assistant | DX: N20.0 Calculus of kidney (principal) ==

== ENCOUNTER → 2024-07-07 | Outpatient (CLI) | payer OTHER | LOC: M PLAIMG 14:36 | PROVIDERS: ATTEND Registered Nurse | DX: S83.241A Other tear of medial meniscus, current injury, right knee, initial encounter (principal); Y93.9 Activity, unspecified; Y92.9 Unspecified place or not applicable ==